=== PATIENT | female | born 1950 | race Caucasian/White ===

== ENCOUNTER → 2020-10-27 | Outpatient (CLI) | payer MEDICARE ==
[~2020-10-27] MED LIST: ASCO500 PO; ASPI81CH PO; ASPI81EC PO; B Complete1 EACH PO; BETA1 PO; BIOTIN10000 MCG PO; BUSP5 PO; Buspirone HCl7.5 MG PO; CALCAVITD PO; CHOL10002 PO; ENOX40I SC; Glucosamine-Ch1 EAC2 PO; IBUP400 PO; L-LYSINE PO; LANS30EC; MESA400ER; MULVITMIND PO; NAPR220 PO; OXYC5 PO; RALO60 PO; RANI150 PO; TAMO20; TOCO400 PO; VISION FORMULA PO; WOMEN MULTIVITAMIN PO; [UNRECOGNIZED DRUG - OTHER]; [UNRECOGNIZED DRUG - OTHER] PO
[2020-10-28 14:10] LABS: HPV 16 Negative (Negative); HPV 18 Negative (Negative); HPV OTHER HR TYPES Negative (Negative)
== END | disposition home or self-care (01) ==
LOC: LAB SHORT 11:45
PROVIDERS: Obstetrics & Gynecology
DX: Z01.419 Encounter for gynecological examination (general) (routine) without abnormal findings (principal)
CPT/HCPCS: 87624; G0123

== ENCOUNTER 2023-01-09 14:00 | Emergency (ER) | payer OTHER ==
[~2023-01-09] VITALS: Ht 157.5 cm; Wt 72.6 kg
== END 2023-01-09 14:52 | disposition home or self-care (01) ==
LOC: ER 14:00
DX: S20.211A Contusion of right front wall of thorax, initial encounter (principal); S20.319A Abrasion of unspecified front wall of thorax, initial encounter; V48.6XXA Car passenger injured in noncollision transport accident in traffic accident, initial encounter; Z88.5 Allergy status to narcotic agent; Z79.899 Other long term (current) drug therapy
CPT/HCPCS: 71045; 93005; 93010